=== PATIENT | female | born 1955 | race Caucasian/White ===

== ENCOUNTER 2017-10-02 12:28 | Observation (INO) ==
--- NOTE | 2017-10-02 12:42 | Emergency Department Note ---
Disposition Clinical Impression: Cellulitis and abscess of foot, Hypertension, Spina bifida aperta of lumbar spine Diabetes mellitus Qualifiers: Diabetes mellitus type: type 2 Diabetes mellitus complication status: with skin complications Diabetes mellitus complication detail: with other skin complication Diabetes mellitus vp insulin use: with assisted use Qualified Code(s): E11.628 - Type 2 diabetes mellitus with other skin complications Disposition: Admitted As Inpatient Referrals: Adarsh Hutchins DO [Non-Partnered Physician] - Forms: ED Satisfaction Letter, Work/School Release Time of Disposition: 15:50 Upper Extremity HPI - General Chief Complaint: ED General Medical Stated Complaint: left shoulder pain, right leg pain Time Seen by Provider: 10/02/17 12:34 Source: patient Limitations: no limitations Nursing Notes Reviewed: Yes Vital Signs Reviewed: Yes - History of Present Illness HPI Narrative: The patient has had left clavicular pain for months. Has seen her physician. Continues with continued left clavicular pain. Also right foot swelling and redness blistering. Doesn't history spinal bifida diabetes mellitus. Does have a left BK A really more concerned about the right foot redness and swelling at this time than anything. No fever no chills. No shortness of breath no fever no chills. Has seen her doctor for this was to have referral. Injury Location: Left: shoulder Onset (ago): month(s) (2) Other Injuries: none Pain Severity: moderate Improves with: nothing Worsens with: nothing Context: other - Related Data Home Medications Medication Instructions Recorded Confirmed Albuterol Sulfate [Proair Hfa] 2 puff IH Q4H PRN 03/12/16 03/12/16 Cholecalciferol (D-3) [Vitamin D] 1,000 unit PO DAILY 03/12/16 03/12/16 Diphenoxylate/Atropine [Lomotil 1 tab PO QID 03/12/16 03/12/16 2.5 mg/0.025 mg] Gabapentin [Neurontin] 300 mg PO TID 03/12/16 03/12/16 Lisinopril [Zestril] 40 mg PO DAILY 03/12/16 03/12/16 Metformin HCl [Glucophage] 1,000 mg PO BID 03/12/16 03/12/16 Oxygen 1 each .ROUTE AD 03/12/16 03/12/16 Pantoprazole Sodium [Protonix] 40 mg PO DAILY 03/12/16 03/12/16 Pioglitazone HCl [Actos] 30 mg PO DAILY 03/12/16 03/12/16 Albuterol Neb [AccuNeb] 1.25 mg IH Q4H PRN 10/02/17 10/02/17 Atorvastatin [Lipitor] 40 mg PO HS 10/02/17 10/02/17 Budesonide/Formoterol 160/4.5 1 puff IH BIDR 10/02/17 10/02/17 [Symbicort 160/4.5] Buspirone HCl [Buspar] 5 mg PO BID 10/02/17 10/02/17 Furosemide [Lasix] 20 mg PO DAILY 10/02/17 10/02/17 Levothyroxine [Synthroid] 50 mcg PO 30 10/02/17 10/02/17 Meloxicam [Mobic] 15 mg PO DAILY 10/02/17 10/02/17 Metoprolol [Lopressor] 25 mg PO DAILY 10/02/17 10/02/17 Ranitidine HCl [Acid Jackaroo] 150 mg PO DAILY 10/02/17 10/02/17 Topiramate [Topamax] 25 mg PO BID 10/02/17 10/02/17 Allergies Allergy/AdvReac Type Severity Reaction Status Date / Time amitriptyline [From Elavil] Allergy Itching Verified 10/02/17 12:30 aspirin Allergy Itching Verified 10/02/17 12:30 Cyclobenzaprine Allergy Itching Verified 10/02/17 12:30 [From Flexeril] divalproex sodium Allergy Itching Verified 10/02/17 12:30 [From Depakote] orphenadrine [From Norflex] Allergy Itching Verified 10/02/17 12:30 pregabalin [From Lyrica] Allergy Itching Verified 10/02/17 12:30 Tizanidine [From Zanaflex] Allergy Itching Verified 10/02/17 12:30 trazodone Allergy Itching Verified 10/02/17 12:30 All systems ED: reviewed and negative except as stated. Constitutional: Denies: fever, chills ENT ED: Denies: ear pain, throat pain Cardiovascular: Denies: chest pain Respiratory: Denies: cough Genitourinary: Denies: urgency, dysuria Musculoskeletal: Denies: neck pain Integumentary: Reports: as per HPI Psychiatric: Reports: as per HPI Past Medical History - Past Medical History Medical history: Reports: arthritis, GERD, hypertension, myocardial infarction, renal disease Surgical history: Reports: hysterectomy, orthopedic, other Psychiatric history: Reports: depression - Social History Smoking Status: Current every day smoker Smokeless Tobacco Status: No Alcohol use: Reports: none Drug use: Reports: none Physical Exam - General Limitations: no limitations General appearance: alert - Head Head exam: atraumatic, normocephalic - Eye Eye exam: Present: PERRL, EOMI - ENT ENT exam: normal oropharynx, mucous membranes moist, TM's normal bilaterally - Neck Neck exam: Present: trachea midline - Respiratory Respiratory exam: Present: normal lung sounds bilaterally - Cardiovascular Cardiovascular exam: Present: regular rate, normal rhythm - Abdominal Exam Abdominal exam: Present: soft, Non-Tender. Absent: guarding, rebound - Extremities Exam Extremities exam: Present: other (Right foot erythematous blistering excoriated. Left shoulder tender over the clavicle. No erythema.) Course Course Narrative: Discussed the findings and care with Dr. Dawson who does agree to admit the patient. Vital Signs Temperature 98.7 F 10/02/17 12:31 Pulse Rate 74 10/02/17 12:31 Respiratory Rate 18 10/02/17 12:31 Blood Pressure 146/114 10/02/17 12:31 O2 Sat by Pulse Oximetry 100 10/02/17 12:31 Temperature 98.7 F 10/02/17 12:31 Pulse Rate 70 10/02/17 15:00 Respiratory Rate 18 10/02/17 15:00 Blood Pressure 104/46 10/02/17 15:00 O2 Sat by Pulse Oximetry 100 10/02/17 15:00 Oxygen Delivery Oxygen Delivery Room Air Extremity Injury, Upper - Lab Data Lab results reviewed: Yes I reviewed the patient's lab results. Result diagrams: 10/02/17 13:10 10/02/17 13:10 Lab Results 10/02/17 10/02/17 10/02/17 Range/Units 13:10 13:10 13:10 WBC 8.9 (4.3-11.1) K/mcL RBC 3.45 L (3.82-4.97) M/mcL Hgb 10.8 L (11.5-15.4) g/dL Hct 34.4 L (35.3-44.9) % MCV 99.7 (83.0-100.0) fL MCH 31.3 (28.0-33.3) pg MCHC 31.4 L (31.6-35.5) g/dL RDW 13.8 (11.5-14.5) % Plt Count 143 (140-400) K/mcL MPV 12.8 H (9.4-12.4) fL Immature Gran % 0.4 (0-4) % Seg Neutrophils % 54.3 % Lymphocytes % 37.0 % Monocytes % 6.2 % Eosinophils % 1.7 % Basophils % 0.4 % Neutrophils # 4.9 (1.6-8.9) K/mcL Lymphocytes # 3.3 (0.6-4.6) K/mcL Monocytes # 0.6 (0.0-1.3) K/mcL Eosinophils # 0.2 (0.0-0.6) K/mcL Basophils # 0.0 (0.0-0.2) K/mcL PT 11.0 (9.4-12.1) Seconds INR 1.0 APTT 33.4 (26.0-36.0) Seconds Sodium 138 (136-145) mEq/L Potassium 5.0 (3.5-5.1) mEq/L Chloride 103 (98-107) mEq/L Carbon Dioxide 29 (23-29) mEq/L BUN 30 H (8-23) mg/dL Creatinine 1.20 (0.60-1.20) mg/dL Est GFR ( Amer) 56 L (> 60) Est GFR (Non-Af Amer) 46 L (> 60) BUN/Creatinine Ratio 25 (6-26) Glucose 122 H (70-105) mg/dL Calculated Osmolality 293 (280-300) Lactic Acid (0.5-2.2) mmol/L Calcium 8.9 (8.6-10.3) mg/dL Troponin I (< 0.04) ng/mL 10/02/17 10/02/17 Range/Units 13:10 13:10 WBC (4.3-11.1) K/mcL RBC (3.82-4.97) M/mcL Hgb (11.5-15.4) g/dL Hct (35.3-44.9) % MCV (83.0-100.0) fL MCH (28.0-33.3) pg MCHC (31.6-35.5) g/dL RDW (11.5-14.5) % Plt Count (140-400) K/mcL MPV (9.4-12.4) fL Immature Gran % (0-4) % Seg Neutrophils % % Lymphocytes % % Monocytes % % Eosinophils % % Basophils % % Neutrophils # (1.6-8.9) K/mcL Lymphocytes # (0.6-4.6) K/mcL Monocytes # (0.0-1.3) K/mcL Eosinophils # (0.0-0.6) K/mcL Basophils # (0.0-0.2) K/mcL PT (9.4-12.1) Seconds INR APTT (26.0-36.0) Seconds Sodium (136-145) mEq/L Potassium (3.5-5.1) mEq/L Chloride (98-107) mEq/L Carbon Dioxide (23-29) mEq/L BUN (8-23) mg/dL Creatinine (0.60-1.20) mg/dL Est GFR ( Amer) (> 60) Est GFR (Non-Af Amer) (> 60) BUN/Creatinine Ratio (6-26) Glucose (70-105) mg/dL Calculated Osmolality (280-300) Lactic Acid 1.4 (0.5-2.2) mmol/L Calcium (8.6-10.3) mg/dL Troponin I < 0.03 (< 0.04) ng/mL - Radiology Data Radiology results reviewed: Yes I reviewed the patient's radiology results. EXAMINATION: 2 VIEWS OF THE LEFT CLAVICLE 10/02/2017 1:32 pm COMPARISON: None. HISTORY: ORDERING SYSTEM PROVIDED HISTORY: pain FINDINGS: Left clavicle appears intact throughout its length, articulating normally at the acromioclavicular and sternoclavicular joints. AC joint space narrowing with marginal osteophytosis reflects AC joint osteoarthritis. XR/XR clavicle LT IMPRESSION: AC joint osteoarthritis. Unremarkable radiographs of the clavicle. D/ / Ronnie Carmichael / Ronnie Carmichael Interpreting Provider: Ronnie Carmichael INATION: SINGLE VIEW OF THE CHEST 10/02/2017 1:32 pm COMPARISON: PA chest 10/20/2016 HISTORY: ORDERING SYSTEM PROVIDED HISTORY: chest pain Acute chest Pain FINDINGS: The cardiac silhouette is enlarged. Calcifications involving the aorta reflect atherosclerosis. The mediastinal and hilar silhouettes appear unremarkable. Chronic scar formation is evident along the lateral left chest. No focal infiltrate is seen. No pneumothorax is seen. No acute osseous abnormality is identified. Post thoracotomy changes noted on the left. Portions of posterior right ribs 4 and 5 are in confluent presumably on a postsurgical or traumatic basis. XR/XR chest 1V portable IMPRESSION: 1. Cardiomegaly. 2. Calcific atherosclerosis aorta. 3. Remote postsurgical sequela involving the chest; correlate with clinical history. 4. No definite acute process evident. Very similar appearance to previous study in 2017. - EKG Data EKG attestation: Yes I reviewed and interpreted this EKG. EKG shows normal: sinus rhythm Rate: normal Rhythm: NSR [place]/QRS: normal Interpretation: no acute changes
[2017-10-02 13:36] LABS: Basophils % 0.4 %; Eosinophils # 0.2 K/mcL (0.0-0.6); Eosinophils % 1.7 %; Hematocrit 34.4 % (35.3-44.9); Hemoglobin 10.8 g/dL (11.5-15.4); Immature Granulocytes % 0.4 % (0-4); Lymphocytes # 3.3 K/mcL (0.6-4.6); Mean Corpuscular HGB Conc 31.4 g/dL (31.6-35.5); Mean Corpuscular Hemoglobin 31.3 pg (28.0-33.3); Mean Corpuscular Volume 99.7 fL (83.0-100.0); Mean Platelet Volume 12.8 fL (9.4-12.4); Monocytes # 0.6 K/mcL (0.0-1.3); Monocytes % 6.2 %; Neutrophils # 4.9 K/mcL (1.6-8.9); Platelet Count 143 K/mcL (140-400); Red Blood Count 3.45 M/mcL (3.82-4.97); Red Cell Distribution Width 13.8 % (11.5-14.5); Segmented Neutrophils % 54.3 %
[2017-10-02 13:44] LABS: Activated Partial Thrombo Time 33.4 Seconds (26.0-36.0)
[2017-10-02 13:55] LABS: Calcium 8.9 mg/dL (8.6-10.3)
[2017-10-02 15:48] LABS: Bilirubin,Urine Negative (Negative); Blood,Urine Negative (Negative); Clarity,Urine Slightly Cloudy (Clear); Glucose,Urine (UA) Normal (Normal); Ketones,Urine Negative (Negative); Leukocyte Esterase,Urine Small (Negative); Nitrite,Urine Negative (Negative); Protein,Urine Negative (Neg-Trace); Specific Gravity,Urine <= 1.005 (1.010-1.025); Urobilinogen,Urine Normal (Normal)
[2017-10-02 16:00] LABS: Color,Urine Light Yellow (Yellow)
[2017-10-02 16:04] LABS: Bacteria,Urine Many per hpf (None-Few); Mucus,Urine Few (Few); Renal Epithelial Cells,Urine Few per hpf (None-Few); Squamous Epithelial Cell,Urine None Seen per lpf (None-Few)
[2017-10-02] MEDS ORDERED: Naloxone 0.4 MG/ML INJ IVP PRN (16:13)
[2017-10-02] MEDS ORDERED: D5% in Water 1,000 ML IVC PRN (16:13)
[2017-10-02] MEDS ORDERED: Dextrose Gel 15 GM/37.5 ML TUBE PO PRN ×2 (16:13)
[2017-10-02] MEDS ORDERED: *HR* Dextrose 50 % in Water (Syg) 50 ML SYRINGE IVP PRN (16:13)
[2017-10-02] MEDS: Piperacillin/Tazobactam 3.375 GM in Water for inj. (sterile) 20 ML 20 ML IVPB SCH (18:40)
[2017-10-02] MEDS: Insulin LISPRO 300 UNITS/3 ML VIAL SQ SCH (18:41)
[2017-10-02] MEDS ORDERED: Insulin LISPRO 300 UNITS/3 ML VIAL SQ SCH (21:00)
[2017-10-02] MEDS: Gabapentin 300 MG CAPSULE PO SCH (22:27)
[2017-10-02] MEDS: Topiramate 25 MG TABLET PO SCH (22:28)
[2017-10-02] MEDS: *HR* Metformin 500 MG TABLET PO SCH (22:35)
[2017-10-02] MEDS ORDERED: Acetaminophen 325 MG TABLET PO PRN (22:53)
[2017-10-02] MEDS ORDERED: Lisinopril 20 MG TABLET PO SCH (23:00)
[2017-10-02] MEDS: Budesonide/Formoterol 160/4.5 1 PUFF INH IH SCH (23:29)
[2017-10-03] MEDS: Piperacillin/Tazobactam 3.375 GM in Water for inj. (sterile) 20 ML 20 ML IVPB SCH ×3 (02:10→15:47)
[2017-10-03] MEDS: Acetaminophen 325 MG TABLET PO PRN ×4 (02:45→16:01)
[2017-10-03] MEDS ORDERED: *HR* Enoxaparin 40 MG/0.4 ML SYRINGE SQ SCH (06:00)
[2017-10-03] MEDS ORDERED: Levothyroxine 25 MCG TABLET PO SCH (06:30)
[2017-10-03] MEDS ORDERED: Lisinopril 20 MG TABLET PO SCH (09:00)
[2017-10-03] MEDS ORDERED: Famotidine 20 MG TABLET PO SCH (09:00)
[2017-10-03] MEDS ORDERED: Furosemide 20 MG TABLET PO SCH (09:00)
[2017-10-03] MEDS ORDERED: *HR* Pioglitazone 15 MG TABLET PO SCH (09:00)
[2017-10-03] MEDS: Budesonide/Formoterol 160/4.5 1 PUFF INH IH SCH (09:27)
[2017-10-03] MEDS: *HR* Metformin 500 MG TABLET PO SCH (10:09)
[2017-10-03] MEDS: Gabapentin 300 MG CAPSULE PO SCH ×2 (10:09→15:46)
[2017-10-03] MEDS: Topiramate 25 MG TABLET PO SCH (10:09)
[2017-10-03] MEDS: Insulin LISPRO 300 UNITS/3 ML VIAL SQ SCH ×2 (10:10→12:03)
--- NOTE | 2017-10-03 15:11 | Internal Med History&Physical ---
Date of Encounter: 10/03/17 Time of Encounter: 14:30 Assessment and Plan (1) Azotemia Current visit: Yes Status: Acute Will stop meloxicam. If azotemia does not improve her PCP can decrease or discontinue lisinopril to see if improvement occurs. (2) Anemia Current visit: Yes Status: Acute Will stop meloxicam. Her PCP can monitor CBC and do anemia testing as needed. Qualifiers: Anemia type: unspecified type Qualified Code(s): D64.9 - Anemia, unspecified (3) Tinea pedis Current visit: Yes Status: Acute Will start ketoconazole cream. Qualifiers: Laterality: right Qualified Code(s): B35.3 - Tinea pedis (4) Diabetes mellitus Current visit: Yes Status: Chronic Hemoglobin A1c was 6.9% on 09/28/2015. Continue Glucophage and Actos. Qualifiers: Diabetes mellitus type: type 2 Diabetes mellitus complication status: with skin complications Diabetes mellitus complication detail: with other skin complication Diabetes mellitus terminal makeup operator insulin use: with [facility] use Qualified Code(s): E11.628 - Type 2 diabetes mellitus with other skin complications; Z79.4 - terminal superintendent (current) use of insulin; Z79.4 - terminal superintendent ( current) use of insulin; Z79.4 - terminal superintendent (current) use of insulin; Z79.4 - longterm (current) use of insulin (5) Hypertension Current visit: Yes Status: Chronic Continue Lopressor and lisinopril. If azotemia does not improve would consider switching lisinopril to different agent. Qualifiers: Hypertension type: essential hypertension Qualified Code(s): I10 - Essential (primary) hypertension (6) COPD (chronic obstructive pulmonary disease) Current visit: Yes Status: Acute Continue present regimen. I encouraged her to become a nonsmoker. Qualifiers: COPD type: unspecified COPD Qualified Code(s): J44.9 - Chronic obstructive pulmonary disease, unspecified Internal Medicine - H&P: HPI Chief complaint: Right foot redness Admitted From: Emergency Dept Plans for Post Hospital Care: Home History of present illness: Ms. Torres is a 62 year old female who was directed to come to emergency room by her home health nurse after the nurse felt there was increase in swelling and redness of the right foot. Patient reports she has had some redness and swelling for at least 2 months. She noticed "blisters" in the area last month. She was evaluated in emergency room and felt to have possible cellulitis. She was admitted to [facility] floor for ongoing care needs. She denies fevers chills nausea vomiting or diarrhea. She has not had recent trauma to the foot. She feels at her baseline now and stable for discharge home. Past Med Surg Social Fam HX - Past Medical History Medical history: arthritis, GERD, hypertension, myocardial infarction, renal disease Psychiatric history: depression - Past Surgical History Surgical History: hysterectomy, orthopedic, other - Social History Smoking Status: Current every day smoker Packs per day: 1 Smokeless Tobacco Status: No Alcohol use: none Drug use: none Internal Medicine - H&P: Meds Albuterol Sulfate [Proair Hfa] 2 puff IH Q4H PRN 03/12/16 [History] Cholecalciferol (D-3) [Vitamin D] 1,000 unit PO DAILY 03/12/16 [History] Diphenoxylate/Atropine [Lomotil 2.5 mg/0.025 mg] 1 tab PO QID 03/12/16 [History] Gabapentin [Neurontin] 300 mg PO TID 03/12/16 [History] Lisinopril [Zestril] 40 mg PO DAILY 03/12/16 [History] Metformin HCl [Glucophage] 1,000 mg PO BID 03/12/16 [History] Oxygen 1 each .ROUTE AD 03/12/16 [History] Pantoprazole Sodium [Protonix] 40 mg PO DAILY 03/12/16 [History] Pioglitazone HCl [Actos] 30 mg PO DAILY 03/12/16 [History] Albuterol Neb [AccuNeb] 1.25 mg IH Q4H PRN 10/02/17 [History] Atorvastatin [Lipitor] 40 mg PO HS 10/02/17 [History] Budesonide/Formoterol 160/4.5 [Symbicort 160/4.5] 1 puff IH BIDR 10/02/17 [ History] Buspirone HCl [Buspar] 5 mg PO BID 10/02/17 [History] Furosemide [Lasix] 20 mg PO DAILY 10/02/17 [History] Levothyroxine [Synthroid] 50 mcg PO 0630 10/02/17 [History] Meloxicam [Mobic] 15 mg PO DAILY 10/02/17 [History] Metoprolol [Lopressor] 25 mg PO DAILY 10/02/17 [History] Ranitidine HCl [Acid Logging Equipment Mechanic] 150 mg PO DAILY 10/02/17 [History] Topiramate [Topamax] 25 mg PO BID 10/02/17 [History] 3 Allergy/AdvReac Type Severity Reaction Status Date / Time amitriptyline [From Elavil] Allergy Itching Verified 10/02/17 12:30 aspirin Allergy Itching Verified 10/02/17 12:30 Cyclobenzaprine Allergy Itching Verified 10/02/17 12:30 [From Flexeril] divalproex sodium Allergy Itching Verified 10/02/17 12:30 [From Depakote] orphenadrine [From Norflex] Allergy Itching Verified 10/02/17 12:30 pregabalin [From Lyrica] Allergy Itching Verified 10/02/17 12:30 Tizanidine [From Zanaflex] Allergy Itching Verified 10/02/17 12:30 trazodone Allergy Itching Verified 10/02/17 12:30 All Systems PM: A 10-system review of systems was performed and is negative for pertinent findings except as documented above in the HPI. Review of systems: Gen.: She states her weight has increased by 30 pounds in the past year, Cardiovascular: She has history of hypertension. She claims she had RI at age 52. This was followed by heart catheter at [facility] [place] without intervention. She claims a diagnosis CHF. Echocardiogram done 10/20/2016 showed LVEF of 60% with reported mild diastolic dysfunction. The E/A ratio was 0.9. She denies DVT or pulmonary embolus. Respiratory: She has smoked since age 20 up to 2 packs per day. She has been diagnosed with COPD and wears oxygen at bedtime. She denies workup for DEISY. 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 She has had cholecystectomy. She has GERD. 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 She denies known kidney or bladder disorders Neurologic: She has migraine headaches. She denies large distribution strokes or seizures. Endocrine: She was diagnosed with DM 2 approximately age 32. She has hyperlipidemia and hypothyroidism Hematology/oncology: She had anemia on labs in the emergency room. 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 She has had left arm and shoulder pain for 4 months. She denies any injury to the shoulder and has not had orthopedic evaluation. She had congenital spina bifida. She has had numerous surgeries in the past related to the spina bifida and other musculoskeletal problems. - Constitutional Vitals: Temp Pulse Resp BP Pulse Ox 97.2 F L 72 16 117/73 100 10/03/17 10:00 10/03/17 10:00 10/03/17 10:00 10/03/17 10:00 10/03/17 10:00 Exam: Gen.: She is a well-developed well-nourished female resting comfortably in bed who appears in no acute distress HEENT: Head is atraumatic and normocephalic. Eyes: EOMI. There is no scleral icterus. Mouth: Mucosa is moist. Neck: Supple and nontender. There is no thyromegaly or adenopathy noted. Heart: Regular without murmurs gallops or ectopics Lungs: No wheezes or crackles heard. Back: She has well-healed surgical scars in the posterior shoulder area. She has had multiple surgeries with scarring in her low back area. Abdomen: There is a healed G-tube site. The abdomen is nontender to palpation. There is a ureterostomy with collection bag in place in the right abdominal area. Extremities: The left leg shows a midcalf BKA. It is well-healed. The right foot shows some deformity. There is significant tenia pedis present. Dorsalis pedis and posttibial pulses are trace palpable. Neurologic: Mental status: She is talkative and a good historian. Cranial nerves: Smile is symmetric. Forehead wrinkles bilaterally. Tongue protrudes midline. EOMI. Motor: There is no pronator drift. Cerebellar: Finger to nose is intact with the left hand. The right arm cannot be done well because of IV access in the right antecubital area. Skin: Warm and dry. She has tinea pedis as described in the right foot. She appears to have venous stasis on the right lower anterior wall area. Internal Med - H&P Results - Labs CBC & Chem 7: 10/02/17 13:10 10/02/17 13:10
[2017-10-03 15:12] VITALS: BP 116/64
--- NOTE | 2017-10-03 15:41 | Discharge Summary ---
Date of Encounter: 10/03/17 Time of Encounter: 14:30 - Discharge Diagnosis (1) Azotemia Priority: Primary Status: Acute (2) Anemia Priority: Secondary Status: Acute Qualifiers: Anemia type: unspecified type Qualified Code(s): D64.9 - Anemia, unspecified (3) Tinea pedis Priority: Secondary Status: Acute Qualifiers: Laterality: right Qualified Code(s): B35.3 - Tinea pedis (4) Diabetes mellitus Priority: Secondary Status: Chronic Qualifiers: Diabetes mellitus type: type 2 Diabetes mellitus complication status: with skin complications Diabetes mellitus complication detail: with other skin complication Diabetes mellitus costumer insulin use: with [facility] use Qualified Code(s): E11.628 - Type 2 diabetes mellitus with other skin complications; Z79.4 - senior care (current) use of insulin; Z79.4 - senior care ( current) use of insulin; Z79.4 - transmission and protection engineer (current) use of insulin; Z79.4 - senior care (current) use of insulin (5) Hypertension Priority: Secondary Status: Chronic Qualifiers: Hypertension type: essential hypertension Qualified Code(s): I10 - Essential (primary) hypertension (6) COPD (chronic obstructive pulmonary disease) Priority: Secondary Status: Chronic Qualifiers: COPD type: unspecified COPD Qualified Code(s): J44.9 - Chronic obstructive pulmonary disease, unspecified - Discharge Medications Prescriptions: Acetaminophen [Pain Relief] 500 mg PO Q4H PRN #100 tablet PRN Reason: Pain Ketoconazole 2% CRM [Nizoral Cream] 1 appl TP BID #30 gm Home Medications: Albuterol Sulfate [Proair Hfa] 2 puff IH Q4H PRN 03/12/16 [History] Cholecalciferol (D-3) [Vitamin D] 1,000 unit PO DAILY 03/12/16 [History] Diphenoxylate/Atropine [Lomotil 2.5 mg/0.025 mg] 1 tab PO QID 03/12/16 [History] Gabapentin [Neurontin] 300 mg PO TID 03/12/16 [History] Lisinopril [Zestril] 40 mg PO DAILY 03/12/16 [History] Metformin HCl [Glucophage] 1,000 mg PO BID 03/12/16 [History] Oxygen 1 each .ROUTE AD 03/12/16 [History] Pioglitazone HCl [Actos] 30 mg PO DAILY 03/12/16 [History] Albuterol Neb [AccuNeb] 1.25 mg IH Q4H PRN 10/02/17 [History] Atorvastatin [Lipitor] 40 mg PO HS 10/02/17 [History] Budesonide/Formoterol 160/4.5 [Symbicort 160/4.5] 1 puff IH BIDR 10/02/17 [ History] Buspirone HCl [Buspar] 5 mg PO BID 10/02/17 [History] Levothyroxine [Synthroid] 50 mcg PO 0630 10/02/17 [History] Metoprolol [Lopressor] 25 mg PO DAILY 10/02/17 [History] Topiramate [Topamax] 25 mg PO BID 10/02/17 [History] Acetaminophen [Pain Relief] 500 mg PO Q4H PRN #100 tablet 10/03/17 [Rx] Ketoconazole 2% CRM [Nizoral Cream] 1 appl TP BID #30 gm 10/03/17 [Rx] Pantoprazole Sodium [Protonix] 40 mg PO DAILY PRN #0 10/03/17 [Rx] Ranitidine HCl [Acid Addressing Machine Operator] 150 mg PO DAILY PRN #0 10/03/17 [Rx] Allergies/Adverse Reactions: 3 Allergy/AdvReac Type Severity Reaction Status Date / Time amitriptyline [From Elavil] Allergy Itching Verified 10/02/17 12:30 aspirin Allergy Itching Verified 10/02/17 12:30 Cyclobenzaprine Allergy Itching Verified 10/02/17 12:30 [From Flexeril] divalproex sodium Allergy Itching Verified 10/02/17 12:30 [From Depakote] orphenadrine [From Norflex] Allergy Itching Verified 10/02/17 12:30 pregabalin [From Lyrica] Allergy Itching Verified 10/02/17 12:30 Tizanidine [From Zanaflex] Allergy Itching Verified 10/02/17 12:30 trazodone Allergy Itching Verified 10/02/17 12:30 Date of admission: 10/02/17 16:08 Primary care physician: Alexander Rodriguez MD - Patient Status Disposition: Home, Self-Care Functional capacity at discharge: wheelchair bound Overall status at discharge: patient is progressing back to baseline - Discharge Instructions Follow Up With: Alexander Rodriguez MD [Primary Care Provider] - 1 week - Diet and Activity Activity: resume usual activities as tolerated Diet: advance to your usual diet Hospital course: Ms. Torres is a 62 year old female who was directed to come to emergency room by her home health nurse after the nurse felt there was increase in swelling and redness of the right foot. Patient reports she has had some redness and swelling for at least 2 months. She noticed "blisters" in the area last month. She was evaluated in emergency room and felt to have possible cellulitis. She was admitted to [facility] for ongoing care needs. Initial orders were written by the emergency room physician. I saw her on October 03 and performed a history physical and discharge. She was started on IV Zosyn for possible cellulitis in the emergency room. When I saw her I felt she likely had tinea pedis and venous stasis on the right leg with no significant cellulitis. She remained afebrile and I felt she was stable for discharge home. She will follow with her PCP Dr. Rodriguez within 1 week. She will be given topical ketoconazole cream for her tinea pedis. No antibiotics will be given since I do not think she has cellulitis. She denied use of Lasix for several months. I will discontinue her meloxicam. Her PCP can monitor azotemia. If no improvement is noted I recommend decreasing or discontinuation of lisinopril. She was given Tylenol for analgesic to replace the meloxicam. She inquired about further evaluation for her bilateral shoulder pain. I told her that her PCP could arrange additional studies as needed. I encouraged her to become a nonsmoker. - Time Spent with Patient Total time spent providing and/or coordinating discharge services: - Constitutional Vitals: Temp Pulse Resp BP Pulse Ox 98.3 F 66 16 116/64 99 10/03/17 15:07 10/03/17 15:07 10/03/17 15:07 10/03/17 15:07 10/03/17 15:07
--- NOTE | 2017-10-04 10:54 | Electrocardiograph Report ---
[address] [place], [place] [address] Test Date: 2017-10-02 Pat Name: Alondra Torres Department: [id number] Room: [facility] Gender: F Sheet Cutting Operator: [id number] : 1955 Requested By: Nas Siddiqi Order Number: [id number] Reading MD: Sherine Meeks Measurements Intervals [place] Rate: 72 P: 70 SD: 167 QRS: -3 QRSD: 75 T: 54 QT: 361 QTc: 386 Interpretive Statements SINUS RHYTHM LOW QRS VOLTAGE IN PRECORDIAL LEADS POSSIBLE RIGHT VENTRICULAR CONDUCTION DELAY Electronically Signed On 10-04-2017 10:52:27 EST by Sherine Meeks
== END 2017-10-03 18:17 | disposition home or self-care (01) ==
LOC: INPPIK 12:28 → EMEROOPIK 12:28 → INPPIK 16:50
PROVIDERS: ADMIT Internal Medicine; ATTEND Internal Medicine